=== PATIENT | male | born 1940 | race African-American/Black ===

== ENCOUNTER 2023-11-07 08:55 | Emergency (ER) | payer BC, MEDICAID ==
[~2023-11-07] VITALS: Ht 180.3 cm; Wt 86.0 kg
[2023-11-07 08:59] VITALS: O2SAT 99
[2023-11-07] MEDS: ACETAMINOPHEN 325MG TABLET PO ONE (10:00)
[2023-11-07 10:10] LABS: BASOPHILS % 0.8 % (0.0-2.0); DIFFERENTIAL COMMENT 0; EOSINOPHILS % 5.2 % (0.0-5.0); HEMATOCRIT. 35.9 % (42.0-52.0); HEMOGLOBIN. 11.8 g/dL (14.0-18.0); LYMPHOCYTES % 25.7 % (20.0-50.0); MEAN CORPUSCULAR HEMOGLOBIN 25.7 pg (28.0-32.0); MEAN CORPUSCULAR HGB CONC 32.9 g/dL (31.0-37.0); MEAN CORPUSCULAR VOLUME 78.1 fL (80.0-94.0); MEAN PLATELET VOLUME 7.8 fl (7.4-10.4); MONOCYTES % 8.6 % (2.0-8.0); NEUTROPHILS % 59.7 % (40.0-76.0); PLATELET 248 x1000/uL (130-400); RED CELL DISTRIBUTION WIDTH 17.6 % (11.6-14.6); WHITE BLOOD COUNT 5.5 x1000/uL (4.5-11.0)
[2023-11-07 11:06] LABS: CHLORIDE 111 mEq/L (98-107); POTASSIUM 4.6 mEq/L (3.5-5.1); SODIUM 143 mEq/L (136-145)
[2023-11-07 11:07] LABS: CALCIUM 9.4 mg/dL (8.7-10.4); CARBON DIOXIDE 24 mEq/L (21-32)
[2023-11-07 11:12] LABS: CREATININE 1.8 mg/dL (0.6-1.3); GLUCOSE 91 mg/dL (70-105); UREA NITROGEN BLOOD 17 mg/dL (9-23)
[2023-11-07 11:14] LABS: ALANINE AMINOTRANSFERASE 13 IU/L (10-49); ALBUMIN 4.1 g/dL (3.2-4.8); ASPARTATE AMINOTRANSFERASE 20 IU/L (<34); BILIRUBIN TOTAL 0.3 mg/dL (0.1-1.0); PROTEIN TOTAL 7.7 g/dL (6.0-8.3)
[2023-11-07] MEDS: MORPHINE SULFATE 4 MG/ML INJ (FOR IV/IM USE) IV ONE (13:08)
[2023-11-07] MEDS: IOHEXOL-300 100 ML BOTTLE ONE (13:39)
[2023-11-07 14:08] VITALS: BP 160/100; PULSE 75; RESP 15; TEMP 98.2
== END 2023-11-07 14:07 | disposition home or self-care (01) ==
LOC: ER 08:55
DX: S20.211A Contusion of right front wall of thorax, initial encounter (principal); M54.2 Cervicalgia; K21.9 Gastro-esophageal reflux disease without esophagitis; N28.1 Cyst of kidney, acquired; V49.59XA Passenger injured in collision with other motor vehicles in traffic accident, initial encounter; Y93.89 Activity, other specified; Y92.89 Other specified places as the place of occurrence of the external cause; Y99.8 Other external cause status
CPT/HCPCS: 99285; 70450; 96374; 71045; 80053; 85025; 36415; 71260; 72125; 74177; Q9967; J2270

== ENCOUNTER 2024-12-29 06:55 | Inpatient (IN) | payer BC, MEDICAID, MEDICARE ==
[~2024-12-29] VITALS: Ht 182.9 cm; Wt 93.4 kg
[2024-12-29] MEDS ORDERED: CEFTRIAXONE 1GM/50ML 50 ML IV ONE (08:15)
[2024-12-29 08:47] LABS: BASOPHILS % 0.9 % (0.0-2.0); EOSINOPHILS % 1.2 % (0.0-5.0); HEMATOCRIT. 42.8 % (42.0-52.0); HEMOGLOBIN. 13.9 g/dL (14.0-18.0); LYMPHOCYTES % 19.8 % (20.0-50.0); MEAN PLATELET VOLUME 9.0 fl (7.4-10.4); MONOCYTES % 5.9 % (2.0-8.0); NEUTROPHILS % 72.2 % (40.0-76.0); PLATELET 193 x1000/uL (130-400); RED BLOOD CELL COUNT 5.33 mill/uL (4.7-6.1); RED CELL DISTRIBUTION WIDTH 17.7 % (11.6-14.6)
[2024-12-29 09:06] LABS: CREATININE 2.2 mg/dL (0.6-1.3); TROPONIN I HIGH SENSITIVITY 18 ng/L (3.0-53)
[2024-12-29 09:07] LABS: UREA NITROGEN BLOOD 23 mg/dL (9-23)
[2024-12-29 09:08] LABS: ASPARTATE AMINOTRANSFERASE 21 IU/L (<34)
[2024-12-29 09:09] LABS: BILIRUBIN DIRECT 0.3 mg/dL (<=3.0); BILIRUBIN TOTAL 1.0 mg/dL (0.1-1.0); PROTEIN TOTAL 8.2 g/dL (6.0-8.3)
[2024-12-29 11:06] LABS: CLARITY URINE CLOUDY (CLEAR); COLOR URINE YELLOW (YELLOW); GLUCOSE URINE NEGATIVE (NEGATIVE); KETONES URINE NEGATIVE (NEGATIVE); NITRITE URINE NEGATIVE (NEGATIVE); OCCULT BLOOD URINE 3+ (NEGATIVE); PH URINE 6.5 (4.5-8.0); PROTEIN URINE 2+ (NEGATIVE); SPECIFIC GRAVITY URINE 1.012 (1.005-1.030)
[2024-12-29 11:07] LABS: LEUKOCYTE ESTERASE URINE TRACE (NEGATIVE); UROBILINOGEN URINE 0.2 E.U./dL (0.2-1.0)
[2024-12-29 11:12] LABS: BACTERIA URINE 4+; SQUAMOUS EPITHELIAL CELL URINE RARE /lpf (RARE/1+)
[2024-12-29 11:13] LABS: RBC URINE 25-50 /hpf (0-2)
[2024-12-29 11:14] LABS: WBC URINE 0-2 /hpf (0-2)
[2024-12-29] MEDS: SODIUM CHLORIDE 0.9% (SEPSIS BOLUS) IV ONE (11:53)
[2024-12-29] MEDS: KETOROLAC 30MG/ML VIAL IV NR (11:55)
[2024-12-29] MEDS: CEFTRIAXONE 1GM/50ML 50 ML IV NR (12:19)
[2024-12-29 15:53] VITALS: BP 141/80; PULSE 85; RESP 16; TEMP 36.5
[2024-12-29 16:00] VITALS: BP 164/97; PULSE 93; RESP 18; TEMP 36.4; O2SAT 100
[2024-12-29] MEDS ORDERED: MORPHINE SULFATE 2 MG/ML INJ (NOT FOR IM USE) IV PRN (17:00)
[2024-12-29] MEDS ORDERED: IPRATROPIUM/ALBUTEROL 0.5-3(2.5)MG/3ML NEB HHN PRN (17:00)
[2024-12-29] MEDS ORDERED: ONDANSETRON HCL 4MG/2ML INJ IV PRN (17:00)
[2024-12-29] MEDS ORDERED: NALOXONE HCL 0.4MG/ML VIAL IV PRN (17:15)
[2024-12-29] MEDS: TAMSULOSIN HCL 0.4MG SR CAPSULE PO SCH (17:53)
[2024-12-29] MEDS: HYDROCODONE/ACETAMINOPHEN 5/325MG TABLET PO PRN (17:58)
[2024-12-29 20:00] VITALS: BP 162/93; PULSE 82; PULSE 84; RESP 18; TEMP 36.6; O2SAT 98
[2024-12-29] MEDS: PREGABALIN 25MG CAPSULE PO SCH (22:05)
[2024-12-29] MEDS: HYDRALAZINE 20MG/ML VIAL IV PRN (22:06)
[2024-12-30] VITALS: BP 161/81; PULSE 82; RESP 20; TEMP 36.4; O2SAT 98
[2024-12-30 01:04] LABS: CREATINE KINASE MB FRACTION 4.5 ng/mL (0.5-3.6)
[2024-12-30 01:32] LABS: TROPONIN I HIGH SENSITIVITY 56.0 ng/L (3.0-53)
[2024-12-30 04:00] VITALS: BP 142/81; PULSE 89; RESP 18; TEMP 36.8; O2SAT 95
[2024-12-30 06:24] LABS: BASOPHILS % 1.0 % (0.0-2.0); EOSINOPHILS % 0.9 % (0.0-5.0); HEMATOCRIT. 35.0 % (42.0-52.0); HEMOGLOBIN. 11.4 g/dL (14.0-18.0); LYMPHOCYTES % 17.1 % (20.0-50.0); MEAN PLATELET VOLUME 9.0 fl (7.4-10.4); MONOCYTES % 6.8 % (2.0-8.0); NEUTROPHILS % 74.2 % (40.0-76.0); PLATELET 164 x1000/uL (130-400); RED BLOOD CELL COUNT 4.43 mill/uL (4.7-6.1); RED CELL DISTRIBUTION WIDTH 17.5 % (11.6-14.6)
[2024-12-30 06:41] LABS: CREATINE KINASE MB FRACTION 4.2 ng/mL (0.5-3.6)
[2024-12-30 06:44] LABS: CREATININE 2.1 mg/dL (0.6-1.3); TRIGLYCERIDE 60.0 mg/dL (0-150); UREA NITROGEN BLOOD 31.0 mg/dL (9-23)
[2024-12-30 06:45] LABS: LDL CHOLESTEROL 121.0 mg/dL (5-100)
[2024-12-30 06:46] LABS: T4 FREE 1.28 ng/dL (0.89-1.76)
[2024-12-30 06:50] LABS: TROPONIN I HIGH SENSITIVITY 62.0 ng/L (3.0-53)
[2024-12-30 08:00] VITALS: BP 199/99; PULSE 88; RESP 18; TEMP 37.1; O2SAT 95
[2024-12-30] MEDS: ENOXAPARIN 40MG/0.4ML SYR SUBCUT SCH (08:35)
[2024-12-30] MEDS: CEFTRIAXONE 1GM/50ML 50 ML IV SCH (08:36)
[2024-12-30] MEDS ORDERED: LEVO250T74 MT (10:45)
[2024-12-30 11:44] VITALS: BP 155/91; PULSE 104; TEMP 97.4; O2SAT 98
== END 2024-12-30 12:25 | disposition home or self-care (01) | DRG 683 ==
LOC: ER 06:55 → 6WST 11:50 → UNDOADMIN 11:50 → 7WST 11:50 → EDBEDREQTM 12:42 → EDBEDREQ 12:42 → ENRESERV 14:02 → 7WST 15:52
PROVIDERS: ADMIT Internal Medicine; ATTEND Internal Medicine
DX: N17.9 Acute kidney failure, unspecified (principal); N39.0 Urinary tract infection, site not specified; N40.1 Benign prostatic hyperplasia with lower urinary tract symptoms; G62.9 Polyneuropathy, unspecified; G89.29 Other chronic pain; M54.9 Dorsalgia, unspecified; R79.89 Other specified abnormal findings of blood chemistry; Z79.899 Other long term (current) drug therapy
CPT/HCPCS: 36415; 71045; 80048; 80061; 80076; 81003; 82550; 82553; 83605; 84145; 84439; 84443; 84484; 85025; 87077; 87186; 93005; 99285; A4606; J0360; J0696; J1650; J1885; J7030

== ENCOUNTER 2025-01-06 08:20 | Emergency (ER) | payer BC, MEDICAID ==
[~2025-01-06] VITALS: Ht 182.9 cm; Wt 93.4 kg
[~2025-01-06 08:20] MED LIST: LEVO250T74 MT
[2025-01-06 08:22] VITALS: TEMP 36.6; O2SAT 100
[2025-01-06 09:46] VITALS: BP 158/89; PULSE 62; RESP 18; O2SAT 100
== END 2025-01-06 09:47 | disposition home or self-care (01) ==
LOC: ER 08:20
DX: Z46.6 Encounter for fitting and adjustment of urinary device (principal); N40.1 Benign prostatic hyperplasia with lower urinary tract symptoms; Z79.899 Other long term (current) drug therapy
CPT/HCPCS: 99281